=== PATIENT | male | born 1990 | race Caucasian/White ===

== ENCOUNTER 2017-05-15 12:37 | Day surgery (SDC) | payer BC ==
[~2017-05-15] VITALS: Ht 177.8 cm; Wt 92.3 kg
[~2017-05-15 12:37] MED LIST: ALBU90I; AMOX500 PO; CRUTCH4 USE; OXYACE5T PO
== END 2017-05-15 14:35 | disposition home or self-care (01) ==
LOC: ORSCSDS 12:37
PROVIDERS: Internal Medicine Gastroenterology
PROC: 0DB98ZX Excision of Duodenum, Via Natural or Artificial Opening Endoscopic, Diagnostic (ICD-10-PCS; principal; 2017-05-15 14:15)
PROC: 0DB68ZX Excision of Stomach, Via Natural or Artificial Opening Endoscopic, Diagnostic (ICD-10-PCS; principal; 2017-05-15 14:15)
DX: R10.13 Epigastric pain (principal); K20.9 Esophagitis, unspecified; K29.80 Duodenitis without bleeding; K29.70 Gastritis, unspecified, without bleeding; R19.7 Diarrhea, unspecified; E73.9 Lactose intolerance, unspecified; E66.9 Obesity, unspecified; Z68.31 Body mass index [BMI] 31.0-31.9, adult; Z79.899 Other long term (current) drug therapy
CPT/HCPCS: 88305; 88342; J7120